=== PATIENT | male | born 1960 | race Two or more races ===

== ENCOUNTER 2017-02-03 18:17 | Emergency (ER) | payer MEDICAID ==
[~2017-02-03] VITALS: Ht 167.6 cm; Wt 86.2 kg
[2017-02-03 22:44] VITALS: BP 138/93
[2017-02-03 23:10] LABS: Basophils # (auto) 0 uL; Basophils % (auto) 0.4 % (0.0-2.0); CONDITION Y; Eosinophils # (auto) 0.3 uL; Eosinophils % (auto) 3.7 % (0.0-7.0); Hematocrit 43.8 % (41.0-53.0); Lymphocytes # (auto) 1.7 uL; Lymphocytes % (auto) 21.9 % (10.0-50.0); Mean Corpuscular Hemoglobin 27.7 pg (28.0-32.0); Mean Corpuscular Hgb Conc. 34.3 g/dL (32.0-36.0); Mean Corpuscular Volume 80.7 fL (80.0-100.0); Mean Platelet Volume 8.9 fL (7.4-10.4); Monocytes # (auto) 0.6 uL; Monocytes % (auto) 8.3 % (0.0-12.0); Neutrophils % (auto) 65.7 % (37.0-80.0); Platelet Count (auto) 310 10^3/uL (140-450); Red Cell Distribution Width 15.4 % (11.6-16.0); White Blood Cell 7.7 10^3/uL (4.4-10.8)
[2017-02-03 23:38] LABS: Albumin 3.8 g/dL (3.4-5.0); Calcium 8.7 mg/dL (8.5-10.1)
[2017-02-03 23:40] LABS: BUN/Creatinine Ratio 12.4
[2017-02-03 23:51] LABS: Bilirubin, Total 0.4 mg/dL (0.2-1.0)
[2017-02-03 23:56] LABS: Potassium 4.7 mmol/L (3.5-5.1)
[2017-02-03 23:57] LABS: Total Protein 7.9 g/dL (6.4-8.2)
== END 2017-02-04 03:11 | disposition home or self-care (01) ==
LOC: ER 18:20
DX: E83.59 Other disorders of calcium metabolism (principal); M19.041 Primary osteoarthritis, right hand; M25.572 Pain in left ankle and joints of left foot; M25.522 Pain in left elbow; M25.521 Pain in right elbow
CPT/HCPCS: 36415; 73080; 73130; 73610; 73700; 80053; 85025; 86431; 87040

== ENCOUNTER 2018-09-21 07:44 | Emergency (ER) | payer MEDICAID ==
[~2018-09-21] VITALS: Ht 167.6 cm; Wt 93.4 kg
[2018-09-21 08:08] VITALS: BP 136/86
== END 2018-09-21 09:15 | disposition home or self-care (01) ==
LOC: ER 07:53
DX: J20.9 Acute bronchitis, unspecified (principal); M19.90 Unspecified osteoarthritis, unspecified site
CPT/HCPCS: 71046

== ENCOUNTER 2020-01-20 15:17 | Emergency (ER) | payer MEDICAID | END 2020-01-20 16:03 | disposition left against medical advice (07) | LOC: ER 15:17 | DX: R35.0 Frequency of micturition (principal); Z53.21 Procedure and treatment not carried out due to patient leaving prior to being seen by health care provider ==